=== PATIENT | male | born 1980 | race Caucasian/White ===

== ENCOUNTER → 2016-10-22 | Emergency (ER) | payer BC ==
[~2016-10-22] VITALS: Ht 180.3 cm; Wt 90.7 kg
[~2016-10-22] MED LIST: DEXALONE30 MG PO; KEFLEX 500MG.500 MG PO; KEPPRA500 MG PO; SUBOXONE 8 MG-21 FIL PO
--- NOTE | 2016-10-22 21:38 | Emergency Room Report ---
History of Present Illness Time Seen by [id number] Presenting Problem in Triage Pt arrived:Ambulance Stretcher Presenting Problem:SEIZURE PATIENT BELIEVES TO ILLICIT XANAX WITHDRAW Onset of symptoms date/time:10/22/1601/28/1745 or onset unknown for: Treatment Prior to Arrival: [facility] Provided by: Sepsis Risk Assessment: Temp: 98.2 B/P: 102/62 MAP: 75 Pulse: 76 Resp: 14 Recent fever? N Clinical Suspician of Infection? N Mental Status: 1 - Regular (Normal Baseline) Sepsis Risk:Low Sepsis Risk Have you (or family members/close friends) recently traveled outside the [place]? N If Yes, where/when: Have you had exposure to infectious disease within the past month? N TB? Other? Specify: Source patient, RN notes reviewed, family, EMS, old records Exam Limitations no limitations Comment pt with brief episode of tonic /clonic sz last a few minutes and has no recent sz but was using xanax street use till about 3 days ago - pt aldso on suboxone Cardiac Chest Pain Chest pain indicative of cardiac No Timing/Duration this evening Severity moderate ALLERGIES Uncoded Allergies: INGREDIENT: NO KNOWN - NO KNOWN DRUG ALLERGY (02/07/04) Home Medications Reported Medications BUPRENORPHINE HCL/NALOXONE HCL (Suboxone 8 MG-2 MG Sl Film) 1 TAB PO DAILY Dextromethorphan Hydrobromid (Dexalone) 30 MG PO QHS History Medical History General Angina: No PA: No Hypertension? No Hyperlipidemia? No CHF? No COPD? No Asthma? No CVA? No Seizures? No Diabetes? No GB Disease: No MRSA? No TB? No Cancer? No Immunization Hx Ped.Immunizations UTD No DT/Tetanus < 1 YR AGO Surgical Hx Previous Surgery?Y Tonsils Family History Family Hx Diabetes Yes CAD Yes Hypertension Yes Cancer Yes TB Yes Social History Smoking Hx Smoker: Current Some Day Smoker Tobacco: Yes Type Cigarettes Packs/day 1 1/2 - 2 Packs Alcohol Alcohol: No Drugs none Review of Systems All Other Systems Reviewed and Negative Constitutional denies fever Eyes denies drainage ENT denies: ear pain, epistaxis, throat pain. Respiratory denies cough, denies shortness of breath, denies wheezing Cardiovascular denies chest pain, denies palpitations, denies syncope Gastrointestinal denies abdominal pain, denies diarrhea, denies vomiting Genitourinary denies: dysuria, frequency, hesitancy, hematuria. Musculoskeletal denies back pain, denies joint pain, denies joint swelling, denies neck pain Skin denies rash Psychiatric/Neurological see HPI, denies headache, seizure Physical Exam Vital Signs Vital Signs Date Time Temp Pulse Resp B/P Pulse O2 O2 Flow FiO2 Ox Delivery Rate 10/22 2258 98.2 58 14 128/54 98 10/22 2002 98.2 76 14 102/62 95 - WBC >12,000 or <4,000 or 10% bands? 2 or more SIRS Criteria Met? B/P:128/54 MAP:75 Creatinine >2.0? UA output<0.5ml/kg/hr for 2 hrs? Platelet count >100,000? Lactate >2.0mmol/1? INR >1.2 or PTT > than 60 sec? Evidence of Organ Dysfunction? Provider documented clinical suspician of infection? N Sepsis Criteria Count: 0 Sepsis Risk: Low Sepsis Risk General Appearance no apparent distress Eye Exam - bilateral eye PERRL, bilateral eye EOMI Ear, Nose, Throat normal ENT inspection, no tongue biting Neck supple Respiratory Status No: respiratory distress. Lung Sounds bilateral: lungs clear. Cardiovascular regular rate/rhythm Peripheral Pulses Pulses normal No Gastrointestinal soft Back no vertebral tenderness Extremities normal inspection Strength 4 Upper Ext (L), 4 Upper Ext (R), 4 Lower Ext (L), 4 Lower Ext (R) Neurologic alert, manager credit II-XII nml as tested, no motor/sensory deficits Glascow Coma Scale Glascow Coma Scale Response Value EYE response: 4 Spontaneously 4 MOTOR response: 6 OBEYS 6 VERBAL response: 5 Oriented & Converses 5 Total 15 Reflexes Reflexes normal No Mental status normal mood/affect Skin intact Medical Decision Making LABS/Meds/Orders Pt receiving controlled substance in ED? No Results/Orders Laboratory Tests 10/22/161: Opiates Screen NEGATIVE, Urine Methadone Screen NEGATIVE, Barbiturates NEGATIVE, Phencyclidine Screen NEGATIVE, Amphetamines Screen NEGATIVE, Benzodiazepines Screen POSITIVE H, Cocaine Screen NEGATIVE, Marijuana (THC) Screen NEGATIVE, Urine Color YELLOW, Urine Appearance CLEAR, Urine pH 6.5, Ur Specific [place] 1.025, Urine Protein 1+ H, Urine Ketones NEGATIVE, Urine Blood NEGATIVE, Urine Nitrate NEGATIVE, Urine Bilirubin NEGATIVE, Urine Urobilinogen 0.2, Ur Leukocyte Esterase NEGATIVE, Urine RBC OCC, Urine WBC OCC, Ur Squamous Epith Cells OCC, Urine Bacteria 1+, Hyaline Casts 3-5, Urine Mucus 4+, Urine Sperm 2+, Urine Glucose NEGATIVE 10/22/162156: Sodium 138, Potassium 4.3, Chloride 103, Carbon Dioxide 31, BUN 9, Creatinine 0.8, Estimated Creat Clear 161, Estimated GFR (MDRD) 108, Glucose 103, Calcium 8.9, Total Bilirubin 0.3, AST 16, ALT 17, Alkaline Phosphatase 53, Creatine Kinase 162, CK-MB (CK-2) Rel Index 0.6, CK and CKMB Interp 1.0, Troponin I 0.02, Total Protein 7.4, Albumin 3.9, Globulin 3.5 H, Albumin/Globulin Ratio 1.1, WBC 13.5 H, RBC 4.55 L, Hgb 13.0 L, Hct 39.3 L, MCV 86.4, RDW 12.9, Plt Count 315, MPV 6.8 L, Gran % 86.1 H, Gran # 11.6 H, Total Counted 100, Lymphocytes % 9.9 L, Monocytes % 3.3, Eosinophils % 0.6, Basophils % 0.1, Neutrophils 85 H , Band Neutrophils 7, Lymphocytes (Manual) 7 L, Lymphocytes # 1.3, Monocytes ( Manual) 1 L, Monocytes # 0.5, Eosinophils # 0.1, Basophils # 0.0, Platelet Estimate NORMAL, Rouleaux 1+, PUBS MCHC 33.2, MCH 28.7, Salicylates 3.2, Acetaminophen 0 L, Alcohols 0 Orders Procedure Date/time Status DIET-NOTHING BY MOUTH 10/23 B Active DIFFERENTIAL-WBC 10/22 2156 Complete URINALYSIS/COMPLETE 10/22 2138 Complete SALICYLATE 10/22 2138 Complete COMPLETE METABOLIC PANEL 10/22 2138 Complete CBC WITH AUTO DIFF 10/22 2138 Complete CARDIAC ENZYMES 10/22 2138 Complete ALCOHOL 10/22 2138 Complete Acetaminophen 10/[address] HEAD W/O CONTRAST 10/[address] HEAD REQ 10/22 2017 Active IV SALINE LOCK 10/22 2017 Active DRUG ABUSE SCREEN (TRIAGE) 10/22 2013 Complete XRAY/CT/US XRAY/CT/US CT head CT interpretation by discussed w/radiologist Time results known: 3 CT Results normal/NAD Departure Departure Time of Disposition 2321 Disposition DC Home or Self Care(routine) Clinical Impression Primary Impression: Seizure Secondary Impressions: Benzodiazepine abuse Condition STABLE Referrals Malia Austin (Family) Patient Instructions DI for Seizure Disorder -- Adult Additional Instructions no driving and see pcp next week and use meds as directed Discharge Counseling Counseled pt/family regarding diagnosis, test results, medications/RX, follow up needs, drug counseling,> 3min Prescriptions Current Visit Scripts Levetiracetam (Keppra) 500 MG PO BID #14 TAB ED Critical Care Critical Care No at [id number]
[2016-10-22 22:34] LABS: URINE BILIRUBIN - DIPSTICK NEGATIVE (NEG); URINE BLOOD NEGATIVE (NEG)
[2016-10-22 22:41] LABS: LYMPH # 1.3 K/mm3 (0.7-4.5); LYMPH % 9.9 % (10-50)
[2016-10-22 22:47] LABS: AMPHETAMINES/METAMPHETAMINES NEGATIVE ng/mL (<1000)
[2016-10-22 23:07] LABS: URINE SQUAMOUS CELLS OCC #/hpf (OCC)
[2016-10-22 23:22] LABS: NEUTROPHILS 85 % (42-76)
[2016-10-23 00:10] VITALS: BP 108/65
--- NOTE | 2016-10-23 07:36 | RADIOLOGY REPORT PS360 ---
CT HEAD W/O CONTRAST HISTORY: SEIZURE ORDERING PHYSICIAN: Jessi Dodson MD PATIENT AGE: 36 years COMPARISON: 10/03/2009 TECHNIQUE: Axial images obtained without contrast. Brain and bone windows reviewed. FINDINGS: No midline shift, mass effect, intracranial hemorrhage, hydrocephalus, or extra-axial fluid collection is evident. The calvarium has an unremarkable appearance. No mastoid effusion. Mucosal thickening involves the ethmoid and sphenoid sinuses. IMPRESSION: 1. No acute intracranial finding. 2. Sinus disease.
== END ==
LOC: ER 19:56
PROVIDERS: Emergency Medicine
DX: R56.9 Unspecified convulsions (principal); F13.10 Sedative, hypnotic or anxiolytic abuse, uncomplicated; Z72.0 Tobacco use